=== PATIENT | female | born 1950 | race Caucasian/White ===

== ENCOUNTER → 2018-04-08 | Day surgery (SDC) | payer MEDICARE, BC ==
--- NOTE | 2018-04-07 15:14 | Diagnostic Imaging Report ---
EXAMINATION: CHEST 2 VIEWS INDICATION: Pre-op COMPARISON: None FINDINGS: TUBES and LINES: None. LUNGS: Lungs are well inflated. Lungs are clear. There is no evidence of pneumonia or pulmonary edema. PLEURA: No pleural effusion or pneumothorax. HEART AND MEDIASTINUM: The cardiomediastinal silhouette is unremarkable. BONES AND SOFT TISSUES: No acute osseous lesion. Soft tissues are unremarkable. UPPER ABDOMEN: No free air under the diaphragm. IMPRESSION: No acute radiographic abnormality. Signed by: Dr. Jesu Hogue MD on 04/07/2018 3:10 PM
[~2018-04-08] MED LIST: DEXAMETHASONE SOD PHOS INJ 4 MG/ML VIAL ONE; IOPAMIDOL 610MG/1ML 300 MG/ML VIAL IV ONE; LEVAQUIN500 MG PO; LEVOTHYROXINE75 MCG PO; LIDOCAINE HCL 2% LOCAL INJ 5 ML SDV VIAL INJ ONE; METFORMIN HCL500 MG PO; MIDAZOLAM HCL 2 MG/2 ML VIAL ONE; ONDANSETRON HCL INJ 2MG/ML 2ML 2 MG/ML VIAL ONE; PROPOFOL IV EMULSION 10 MG/ML 20 ML VIAL ONE; SEVOFLURANE INHAL SOLN 250 ML PEN BTL ONE; TRIAMTERENE-HCTZ1 EA PO; VASOTEC10 MG PO
--- OUTSIDE RECORDS SUMMARY | 2018-04-08 09:37 | XMS REPORT | Clinical Summary ---
Author Author [facility] Organization [facility] Address Unknown Phone Unavailable Care Team Providers Care Oil Producer Name Role Phone Asked, No Pcp PCP Unavailable Allergies Not on File Medications Not on file Active Problems Not on file Encounters Care Team Description Date Type Specialty Jamel Barcenas MD Hemorrhagic cystitis; Hematuria syndrome 04/01/2018 Hospital Radiology Encounter Jamel Barcenas MD Hemorrhagic cystitis (Primary Dx); Hematuria syndrome 03/30/2018 Transcribe Access Orders after 04/07/2017 Social History Date Tobacco Use Types Packs/Day Years Used Never Assessed Sex Assigned at Date Recorded Not on file Industry Job Start Date Occupation Not on file Not on file Not on file Travel End Travel History Travel Start No recent travel history available. Last Filed Vital Signs Not on file Plan of Treatment Health Maintenance Due Date Last Done Comments COLON CANCER SCREENING 2000 SHINGLES VACCINES (1 of 2000 2) BREAST CANCER SCREENING 02/03/2011 02/03/2009 PNEUMOCOCCAL 07/03/2015 POLYSACCHARIDE VACCINE AGE 65 AND OVER PNEUMOCOCCAL-13 07/03/2015 INFLUENZA VACCINE 10/15/2017 Procedures Comments Procedure Name Priority Date/Time Associated Diagnosis CT ABDOMEN PELVIS W Routine 04/01/2018 Hemorrhagic cystitis CONTRAST 8:43 AM QUALITY SYSTEMS MANAGER Hematuria syndrome ESTIMATED GFR Routine 04/01/2018 8:25 AM QUALITY SYSTEMS MANAGER POC CREATININE Routine 04/01/2018 8:25 AM QUALITY SYSTEMS MANAGER after 04/07/2017 Results * CT Abdomen Pelvis W Contrast (04/01/2018 8:43 AM QUALITY SYSTEMS MANAGER) Narrative Performed At EXAMINATION:CT ABDOMEN PELVIS W CONTRAST HM RADIANT CLINICAL HISTORY:N30.91 Cystitisunspecified with hematuria, R31.9 Hematuriaunspecified, N30.91 TECHNIQUE: CT of the abdomen was performed with intravenous contrast. CT imaging was performed with iterative reconstruction technique and/or automated exposure control to reduce radiation dose. COMPARISON: None FINDINGS: LOWER THORAX: 1.Lung bases: Lungs are clear bilaterally. No suspicious nodules or masses. ABDOMEN: 1. Liver: Multiple, scattered simple hepatic cysts, the largest measuring 1.3 cm within segment 7. 2. Gallbladder: The gallbladder is surgically absent. 3. Spleen: The spleen is not enlarged. 4. Pancreas: The pancreas is unremarkable. 5. Adrenal Glands: The adrenal glands are unremarkable. 6. Kidneys: . No mass, hydronephrosis or calculi. No ureteral filling defects are seen in the renal cortices systems or within the thoracic portion of the ureters bilaterally. The distal left ureter was poorly opacified. 7. Abdominal Aorta: The abdominal aorta is nonaneurysmal. Mild scattered atherosclerotic disease. 8. Nodes: No enlarged retroperitoneal or mesenteric lymphadenopathy. 9. Bowel: No bowel obstruction or inflammatory changes of the large or small bowel. The appendix is not identified. 10. Ascites: No ascites or fluid collections. 12. Bones: Mild multilevel degenerative changes of the thoracic and lumbar spine. No suspicious osseous lesions.. 13. Other: Postinflammatory changes of the left gluteal soft tissues likely related to injections. PELVIS: 1.Genitalia: The uterus is absent. 2.Bladder: Unremarkable. IMPRESSION: No renal mass or hydronephrosis. No ureteral lesions are seen. Urinary bladder is unremarkable. I personally reviewed the images and the resident's findings and agree with the final report. [facility]-[id number] Procedure Note [facility], Radiology Results Incoming - 04/01/2018 1:30 PM QUALITY SYSTEMS MANAGER EXAMINATION: CT ABDOMEN PELVIS W CONTRAST CLINICAL HISTORY: N30.91 Cystitis unspecified with hematuria, R31.9 Hematuria unspecified, N30.91 TECHNIQUE: CT of the abdomen was performed with intravenous contrast. CT imaging was performed with iterative reconstruction technique and/or automated exposure control to reduce radiation dose. COMPARISON: None FINDINGS: LOWER THORAX: 1. Lung bases: Lungs are clear bilaterally. No suspicious nodules or masses. ABDOMEN: 1. Liver: Multiple, scattered simple hepatic cysts, the largest measuring 1.3 cm within segment 7. 2. Gallbladder: The gallbladder is surgically absent. 3. Spleen: The spleen is not enlarged. 4. Pancreas: The pancreas is unremarkable. 5. Adrenal Glands: The adrenal glands are unremarkable. 6. Kidneys: . No mass, hydronephrosis or calculi. No ureteral filling defects are seen in the renal cortices systems or within the thoracic portion of the ureters bilaterally. The distal left ureter was poorly opacified. 7. Abdominal Aorta: The abdominal aorta is nonaneurysmal. Mild scattered atherosclerotic disease. 8. Nodes: No enlarged retroperitoneal or mesenteric lymphadenopathy. 9. Bowel: No bowel obstruction or inflammatory changes of the large or small bowel. The appendix is not identified. 10. Ascites: No ascites or fluid collections. 12. Bones: Mild multilevel degenerative changes of the thoracic and lumbar spine. No suspicious osseous lesions.. 13. Other: Postinflammatory changes of the left gluteal soft tissues likely related to injections. PELVIS: 1. Genitalia: The uterus is absent. 2. Bladder: Unremarkable. IMPRESSION: No renal mass or hydronephrosis. No ureteral lesions are seen. Urinary bladder is unremarkable. I personally reviewed the images and the resident's findings and agree with the final report. [facility]-[id number] Performing Organization Address City/State/Zipcode Phone Number [facility] [address] [place] [address] * Estimated GFR (04/01/2018 8:25 AM QUALITY SYSTEMS MANAGER) Estimated GFR 52 (A) mL/min/1.73 m2 FREYA DAVENPORT Comment: [facility] CatergoryUnitsInte rpretation G1 >=90 Normal or high G2 60-89Mildly decreased Y6l36-89 Mildly to moderately decreased [id number] Moderately to severely decreased G4 15-29Severely decreased G5 <15Kidney failure The eGFR was calculated using the Chronic Kidney Disease Epidemiology Collaboration (CKD-EPI) equation. Interpretation is based on recommendations of the National Kidney Foundation-Kidney Disease Outcomes Quality Initiative (NKF-KDOQI) published in 2014. Specimen Blood Performing Organization Address City/State/Zipcode Phone Number [facility] [place] [id number] [place] [address] PATHOLOGY AND GENOMIC MEDICINE [facility] [address] [place], [place] [id number] [place] [address] * POC creatinine (04/01/2018 8:25 AM QUALITY SYSTEMS MANAGER) POC creatinine 1.1 (H) 0.5 - 0.9 mg/dl FREYA DAVENPORT Comment: [facility] Meter ID: [id number] Aerodynamic Consultant: Silvia Reza Specimen Blood Performing Organization Address City/State/Zipcode Phone Number [facility] [address] [place] [address] PATHOLOGY AND GENOMIC MEDICINE [facility] [address] [place] [address] [facility] after 04/07/2017 Insurance Payer Benefit Subscriber ID Type Phone Address Plan / Group MEDICARE MEDICARE xxxxxxxxxxx Medicare [place], [place] PART A AND B BCBS BCBS xxxxxxxxxxxx Indemnity PAR/TRAD PLAN (Home) [place] [address]
--- OUTSIDE RECORDS SUMMARY | 2018-04-08 09:37 | XMS REPORT ---
Author Author [facility] Address Unknown Phone Unavailable Care Team Providers Care Community Fundraiser Name Role Phone Rico YAALA Unavailable Unavailable Problems This patient has no known problems. Allergies, Adverse Reactions, Alerts This patient has no known allergies or adverse reactions. Medications This patient has no known medications. Results Test Description Test Time Test Comments Text Results Atomic Results Result Comments CHEST 2 VIEWS 2018-04-07 15:07:00 [place] [address] Patient Name: VERO SHANE MR #: [id number] : 1950 Age/Sex: 67/F Req #: [id number] [facility] Physician: Ordered by: NATALIYA AYALA MD Report #: [id number] Location: OR Room/Bed: Procedure: [id number] DX/CHEST 2 VIEWS Exam Date: 04/07/18 Exam Time: 1430 REPORT STATUS: Signed EXAMINATION: CHEST 2 VIEWS INDICATION: Pre-op COMPARISON: None FINDINGS: TUBES and LINES: None. LUNGS: Lungs are well inflated. Lungs are clear. There is no evidence of pneumonia or pulmonary edema. PLEURA: No pleural effusion or pneumothorax. HEART AND MEDIASTINUM: The cardiomediastinal silhouette is unremarkable. BONES AND SOFT TISSUES: No acute osseous lesion. Soft tissues are unremarkable. UPPER ABDOMEN: No free air under the diaphragm. IMPRESSION: No acute radiographic abnormality. Signed by: Dr. Colby Huerta MD on 04/07/2018 3:10 PM Dictated By: COLBY HUERTA MD [id number] Transcribed By: KISHA on 04/07/18 1761 COPY TO: NATALIYA AYALA MD
--- NOTE | 2018-04-08 13:51 | Operative Report ---
DATE OF PROCEDURE: April 08, 2018 PREOPERATIVE DIAGNOSES 1. Total gross painless hematuria. 2. Acute cystitis. 3. Chronic cystitis. POSTOPERATIVE DIAGNOSES 1. Total gross painless hematuria. 2. Acute cystitis. 3. Chronic cystitis. OPERATION: Cystourethroscopy. RIB SAWYER: Dr. Puga ANESTHETIC: General. Ms. Rich is a 67-year-old female who presented with a chief complaint of total gross hematuria with lower abdominal pain. A CT scan with contrast was unremarkable. This patient was placed on the table in the lithotomy position and was prepped and draped in a sterile manner after satisfactory anesthesia. A #23-Marshallese cystoscope was used, and cystourethroscopy was performed. The urethra was normal. Cystoscopy was then performed using both right-angle and the foroblique lens. The bladder mucosa showed acute on top of chronic cystitis with cystitis glandularis. The trigone showed marked trigonitis with cobblestone appearance. There was no evidence of gross tumor or papillary lesions. The bladder was drained and the cystoscope removed. Plan for this lady is to be placed on Cipro 250 mg 1 every night for 6 weeks after she finishes her 2-week dose of Levaquin. She was also started on Ditropan 5 mg one twice a day and Ultracet tablet 1 every 6 to 8 hours p.r.n. and was given 20. She is to return to the office in 3 weeks. Job#: [id number]
[2018-04-08 14:15] VITALS: BP 122/65
== END | disposition home or self-care (01) ==
LOC: OR 09:35
PROVIDERS: ATTEND Specialist
DX: N30.01 Acute cystitis with hematuria (principal); N30.21 Other chronic cystitis with hematuria; F41.9 Anxiety disorder, unspecified; E11.9 Type 2 diabetes mellitus without complications; Z01.810 Encounter for preprocedural cardiovascular examination; Z01.818 Encounter for other preprocedural examination; Z79.84 Long term (current) use of oral hypoglycemic drugs
CPT/HCPCS: 36415; 52000; 71046; 82948; 93005; C1758; J1100; J2001; J2250; J2405; J2704; Q9967; 76000